=== PATIENT | female | born 1980 | race Caucasian/White ===

== ENCOUNTER 2024-03-10 08:49 | Day surgery (SDC) | payer BC ==
--- NOTE | 2024-03-10 08:18 | HP ---
DATE OF SURGERY: 03/10/2024 HISTORY OF PRESENT ILLNESS: The patient is a 43-year-old with last colonoscopy was only fair, needs follow up screening colonoscopy to evaluate change in bowel habits with loose stools. Added Mounjaro to take care of some loose stools. No new pain. PAST MEDICAL HISTORY: Hypertension, depression, history of some loose stools in the past, hypothyroidism, diabetes type II, hyperlipidemia. PAST SURGICAL HISTORY: Colonoscopy. Uterine ablation. MEDICATIONS: Atorvastatin, Mounjaro, losartan, loratadine, escitalopram, Oysco 500 with vitamin D, carvedilol, levothyroxine, potassium gluconate, Co Q-10, vitamin D3. ALLERGIES: NKDA. FAMILY HISTORY: Negative for colon cancer. SOCIAL HISTORY: History of smoking, occasional alcohol use. REVIEW OF SYSTEMS: Twelve systems reviewed. No chest pain or palpitations. Other systems negative or noncontributory as above and per preadmission questionnaire. PHYSICAL EXAMINATION: Height 5 feet 11 inches. BMI 37.77. GENERAL: No acute distress. HEENT: Sclerae nonicteric. EOMI. Oral mucous membranes moist. NECK: No JVD. CHEST: Equal excursion, nonlabored breathing. CVS: Regular rate and rhythm. ABDOMEN: Soft. EXTREMITIES: No cyanosis or edema. NEURO: Alert, oriented, moving extremities symmetrically. RECTAL: Deferred timed to endoscopy exam. PSYCH: Appropriate mood and affect. SKIN: Dry. IMPRESSION: Need for screening colonoscopy. I feel the patient is a candidate. Risks explained in detail including but not limited to risk of bleeding or infection, risk of bowel injury or perforation possibly requiring further procedure, risk of missed or nondiagnosis or incomplete exam possibly requiring barium enema, other procedures or referral, risk of anesthesia or anesthesia, risk of bowel prep but not limited to. Will proceed with screening colonoscopy as an outpatient under MAC anesthesia.
[2024-03-10 09:07] VITALS: RESP 18
[2024-03-10] MEDS ORDERED: Lactated Ringers 1,000 ML IV ONE (09:10)
[2024-03-10 09:18] LABS: HCG URINE TEST NEGATIVE (NEGATIVE)
[2024-03-10] MEDS: Lactated Ringers 1,000 ML IV SCH (09:28)
[2024-03-10] MEDS ORDERED: Versed 2 MG/2 ML Injection ONE (11:09)
[2024-03-10] MEDS ORDERED: DIPRIVAN 200 MG/20 ML IV ONE ×2 (11:09→11:20)
[2024-03-10 12:04] VITALS: TEMP 96.7; O2SAT 98
[2024-03-10 12:09] VITALS: PULSE 66
[2024-03-10 12:10] VITALS: BP 162/84
--- NOTE | 2024-03-10 15:08 | OP ---
SURGERY DATE/TIME: 03/10/2024 1110 PREOPERATIVE DIAGNOSIS: Need for follow up screening colonoscopy. POSTOPERATIVE DIAGNOSES: 1) Mild diverticulosis left colon. 2) Very good prep. 3) ASA Class III. 4) Small polyps. PROCEDURES: 1) Colonoscopy to cecum. 2) Hot biopsy piecemeal removal of submucosal nodule proximal rectum. 3) Hot biopsy polypectomy rectal polyp. 4) Hot biopsy polypectomy sigmoid colon polyp x2. 5) Random cold biopsy of colon to evaluate for microscopic colitis. 6) Hot biopsy removal of piecemeal raised lesion versus early polyp versus hyperplastic lesion from transverse colon x2. 7) Withdrawal time approximately eleven minutes. SURGEON: Dr. Tom Young M.D. ANESTHESIA: MAC. QUANTITATIVE BLOOD LOSS: Minimal. INDICATIONS: As noted above. Consent obtained. DESCRIPTION OF PROCEDURE AND FINDINGS: The patient is taken to the endoscopy room. MAC anesthesia induced. After official time out and no disagreement with planned procedure, digital rectal exam did not reveal any rectal masses just some small internal hemorrhoids. Video colonoscope inserted and passed up through the slightly tortuous sigmoid, descending, transverse and ascending colon. With the external pressure the scope was able to be passed around to the cecum. Appendiceal orifice and valve well visualized. Prep overall was very good with a little bit of liquid but overall very good prep. The scope withdrawn over the next eleven minutes. In the transverse colon, there are a couple of vague very small raised lesions versus early hyperplastic lesions versus early polyps removed with hot biopsy forceps. Good hemostasis noted. Back in the sigmoid colon, a couple small early polyps removed with hot biopsy polypectomy. Good hemostasis noted. She did have a few small diverticula in the left colon and some mild diverticulosis. Some random cold biopsies in the left colon to evaluate for microscopic colitis as she has history of change in bowel habits in the past. In the rectum, there is a small early polyp versus hyperplastic lesion removed with hot biopsy polypectomy. There was a submucosal nodule in the proximal third of the rectum of unclear etiology removed as well as possible in hot biopsy piecemeal fashion. Good hemostasis noted. Scope is withdrawn. The patient tolerated the procedure well. There were no immediate complications. Discussed with the friend/family out in the waiting area.
== END 2024-03-10 12:17 | disposition home or self-care (01) ==
LOC: SDC 08:49
PROVIDERS: ATTEND Surgery
DX: Z12.11 Encounter for screening for malignant neoplasm of colon (principal); K57.30 Diverticulosis of large intestine without perforation or abscess without bleeding; K64.4 Residual hemorrhoidal skin tags; D12.5 Benign neoplasm of sigmoid colon; C7A.8 Other malignant neuroendocrine tumors
CPT/HCPCS: 81025; J2250; J2704